=== PATIENT | female | born 1980 | race Caucasian/White ===

== ENCOUNTER → 2017-06-06 | Outpatient (CLI) | payer OTHER ==
[~2017-06-06] MED LIST: AMOXICILLIN 50500 MG PO; CLARITIN 10MG T10 MG PO; DILAUDID2 MG NG; IPRATROPIUM BROM3 M1 IH; IRON325 MG OR; KEFLEX 500MG.500 MG PO; MOTRIN400 MG PO; MOTRIN600 MG PO; NEBULIZER XX; PREDNISONE 20MG20 MG PO; PRENATAL VITAMI1 TAB PO; PROAIR HFA0.09 MG/AC IH; RANITIDINE 150150 MG PO; SYMBICORT 10.10.2 M1 IH; TAMIFLU75 MG PO; VICODIN 5/500 T1 TAB PO; VOLTAREN75 MG PO; WELLBUTRIN XL150 MG PO; ZANTAC 150150 MG PO; ZITHROMAX Z-PA250 M1 PO
--- NOTE | 2017-06-11 10:23 | RADIOLOGY REPORT PS360 ---
DIG MAMM-DX UNI A/VWS-LT W/CAD LEFT BREAST ULTRASOUND COMPARISON: None INDICATION: Follow-up abnormal mammogram ORDERING PHYSICIAN: Khoi Toledo MD PATIENT AGE: 37 years TECHNIQUE: Spot compression views and rolled views are obtained of the left breast. FINDINGS: The previously noted asymmetric density in the lower outer aspect of the left breast does appear to compress out as fibroglandular tissue. A discrete mass is not apparent. There is some asymmetry however in this region. There is a benign-appearing nodular opacity in the lateral left breast at 3 mm seen only on the focal spot compression view. Left breast ultrasound: No mass or cyst apparent within the left breast. Incidental nodes are present in the axilla. IMPRESSION: No convincing evidence of malignancy. BI-RADS CATEGORY: 3_Probably Benign-Short Term F/U RECOMMENDED FOLLOWUP: 6 month mammographic follow-up of left breast (A letter has been sent to the patient regarding results of the study.)
== END ==
LOC: RAD 13:41
DX: R92.8 Other abnormal and inconclusive findings on diagnostic imaging of breast (principal)
CPT/HCPCS: G0206-LT